=== PATIENT | female | born 1970 | race Caucasian/White ===

== ENCOUNTER 2017-04-20 01:15 | Emergency (ER) | payer OTHER ==
[~2017-04-20] VITALS: Ht 162.6 cm; Wt 54.4 kg
--- NOTE | 2017-04-20 01:21 | Emergency Room Report ---
History of Present Illness General Chief Complaint: Dyspnea/Respdistress Source: Patient Present Illness HPI Is a 47-year-old female with history of COPD. She still smokes. Also has history HIV and hepatitis. She presents with chief complaint of anxiety. Said that she can't breathe. Hard time getting air. No fever or chills. No nausea no vomiting. Out of her inhaler. Denies any fever chills denies any chest pain. Allergies: Coded Allergies: No Known Allergies (Unverified , 04/20/17) Patient History Past Medical History: see triage record, old chart reviewed, COPD, HIV Past Surgical History: other Pertinent Family History: none Social History: Reports: smoking, Denies: drug use Last Menstrual Period: last month Now: No Immunizations: other Reviewed Nursing Documentation: PMH: Agreed, PSxH: Agreed Nursing Documentation-PMH Hx COPD: Yes Hx Gastrointestinal Problems: Yes - HEP C History Of Psychiatric Problem: Yes - ANXIETY Review of Systems Eye: Denies: blurred vision, eye pain ENT: Denies: ear pain, nose congestion, throat swelling Respiratory: Reports: cough, shortness of breath Cardiovascular: Denies: chest pain, palpitations Gastrointestinal: Denies: abdominal pain, diarrhea, nausea, vomiting Musculoskeletal: Denies: back pain, joint pain Skin: Denies: rash Neurological: Denies: headache, numbness Endocrine: Denies: increased thirst, increased urine Hematologic/Lymphatic: Denies: easy bruising All Other Systems: negative except mentioned in HPI Physical Exam Vital Signs Date Time Temp Pulse Resp B/P Pulse Ox O2 Delivery O2 Flow Rate FiO2 04/20/17 01:10 98.1 106 20 129/78 87 Room Air vitals with tachycardia and hypoxia Sp02 EP Interpretation: reviewed, abnormal General Appearance: well appearing, no apparent distress, alert Head: normocephalic, atraumatic Eyes: bilateral eye EOMI, bilateral eye PERRL ENT: hearing grossly normal, normal pharynx Neck: full range of motion, supple, no meningismus Respiratory: chest non-tender, decreased breath sounds, wheezing Cardiovascular #1: regular rate, rhythm, no murmur Gastrointestinal: normal bowel sounds, non tender, no mass, no organomegaly, no bruit, non-distended Musculoskeletal: back normal, gait/station normal, normal range of motion Psychiatric: mood/affect normal Skin: warm/dry Medical Decision Making Diagnostic Impression: Primary Impression: COPD with exacerbation Additional Impression: Anxiety ER Course Patient is as with COPD exacerbation. She is better now after breathing treatment. No wheezing. Oxygenation is 96% on room air. We'll discharge home in the morning. No suicidal thought homicidal thought. No drug abuse. She told me that she just left [facility] couple days ago. She was treated there for pneumonia. Chest X-Ray Diagnostic Results Chest X-Ray Diagnostic Results : Chest X-Ray Ordered: Yes # of Views/Limited/Complete: 1 View Indication: Shortness of Breath EP Interpretation: Yes Interpretation: no consolidation, no effusion, no pneumothorax, no acute cardiopulmonary disease Impression: No acute disease - COPD Interpreting ER Provider: Electronically signed by Joey Baptiste MD Last Vital Signs Date Time Temp Pulse Resp B/P Pulse Ox O2 Delivery O2 Flow Rate FiO2 04/20/17 01:10 98.1 106 20 129/78 87 Room Air Status: improved Disposition: HOME, SELF-CARE Condition: Stable Scripts Prednisone* (PREDNISONE*) 20 Mg Tablet 40 MG ORAL DAILY, #8 TAB Prov: JOEY BAPTISTE M.D. 04/20/17 Albuterol Sulfate* (ALBUTEROL SULFATE MDI*) 8.5 Gm Hfa.aer.ad 2 PUFF INH Q4H Y for cough/wheezing, #1 EA 0 Refills Prov: JOEY BAPTISTE M.D. 04/20/17 Patient Instructions: Chronic Obstructive Pulmonary Disease Exacerbation Additional Instructions: Stop smoking. Followup with your DrRochelle in 2-3 days. Return if symptom worsen. JOEY BAPTISTE M.D. Apr 20, 2017 01:21
[2017-04-20] MEDS ORDERED: Ipratropium 0.02% Inh Soln 2.5ml UD HHN ONE (01:30)
[2017-04-20] MEDS ORDERED: PredniSONE 20mg tab ORAL ONE (01:30)
[2017-04-20] MEDS ORDERED: Albuterol ud Inhalation HHN ONE (01:30)
[2017-04-20 02:00] VITALS: BP 141/72
[2017-04-20] MEDS ORDERED: ALBUTEROL SULF8.5 GM INH (02:37)
[2017-04-20] MEDS ORDERED: PREDNISONE20 MG ORAL (02:38)
[2017-04-20 03:30] VITALS: BP 133/72
--- NOTE | 2017-04-20 10:21 | Diagnostic Imaging Report ---
Indication: Dyspnea Comparison: None A single view chest radiograph was obtained. Findings: Cardiomediastinal appearance is within normal limits for age. Pulmonary vascularity is appropriate. The diaphragmatic contour is smooth and costophrenic angles are sharp. No pleural effusions are identified. The bones are unremarkable. Impression: No acute findings
== END 2017-04-20 03:30 | disposition home or self-care (01) ==
LOC: EDBD 01:15 → EMR 02:47
DX: J44.1 Chronic obstructive pulmonary disease with (acute) exacerbation (principal); F41.9 Anxiety disorder, unspecified; F17.200 Nicotine dependence, unspecified, uncomplicated; Z86.19 Personal history of other infectious and parasitic diseases; R00.0 Tachycardia, unspecified; R09.02 Hypoxemia
CPT/HCPCS: 71010; 80300; 94640; 94664; 99284

== ENCOUNTER 2017-04-27 01:27 | Emergency (ER) | payer OTHER ==
[~2017-04-27] VITALS: Ht 162.6 cm; Wt 54.4 kg
[~2017-04-27 01:27] MED LIST: ALBUTEROL SULF8.5 GM INH; PREDNISONE20 MG ORAL
[2017-04-27 01:55] VITALS: BP 120/70
[2017-04-27 02:11] VITALS: BP 120/70
--- NOTE | 2017-04-27 07:58 | Emergency Room Report ---
History of Present Illness General Chief Complaint: General Complaint Source: Patient Present Illness HPI Is a 46-year-old female brought in by EMS after increased anxiety. Patient was noted to be at least patient. Patient stated that she had she had not been able to find her boyfriend. The patient had been taking multiple medications for anxiety as well as pain. She denies any acute complaints. She denies suicidal thoughts. She is denies auditory or visual hallucinations. Allergies: Coded Allergies: No Known Allergies (Unverified , 04/20/17) Patient History Past Medical History: see triage record Now: No Reviewed Nursing Documentation: PMH: Agreed, PSxH: Agreed Nursing Documentation-PMH Hx COPD: Yes Hx Gastrointestinal Problems: Yes - HEP C History Of Psychiatric Problem: Yes - anxiety Review of Systems All Other Systems: negative except mentioned in HPI Physical Exam Vital Signs Date Time Temp Pulse Resp B/P Pulse Ox O2 Delivery O2 Flow Rate FiO2 04/27/17 01:43 97.5 68 16 120/70 98 Room Air Sp02 EP Interpretation: reviewed, normal General Appearance: normal inspection, well appearing, no apparent distress, alert, GCS 15 Head: normocephalic, atraumatic ENT: normal ENT inspection, hearing grossly normal, normal voice Neck: normal inspection, full range of motion, supple, no bony tend Respiratory: normal inspection, lungs clear, normal breath sounds, no respiratory distress, no retraction, no wheezing Cardiovascular #1: regular rate, rhythm, no edema Gastrointestinal: normal inspection, normal bowel sounds, non tender, soft, no guarding, no hernia Genitourinary: no CVA tenderness Musculoskeletal: normal inspection, back normal, normal range of motion Neurologic: normal inspection, alert, responsive, speech normal Psychiatric: normal inspection, judgement/insight normal, mood/affect normal Skin: normal inspection, normal color, no rash Medical Decision Making Diagnostic Impression: Primary Impression: Anxiety ER Course Patient presented for anxiety. Differential diagnoses include substance abuse , psychosis, bipolar disorder, depression among others. Patient's benign exam and does not appear to require any further imaging or laboratory testing at this time. The patient appears as some anxiety however she is on multiple medications for this. Patient denied any auditory or visual hallucinations she denied any suicidal thoughts. The patient does not appear to require psychiatric hospitalization or treatment at this time. The patient is advised to follow up with primary care doctor in 1-2 days. Patient is advised to return if any worsening condition or if any changes in status that are concerning. Last Vital Signs Date Time Temp Pulse Resp B/P Pulse Ox O2 Delivery O2 Flow Rate FiO2 04/27/17 02:11 78 16 120/70 98 Room Air 04/27/17 01:55 97.5 Status: improved Disposition: HOME, SELF-CARE Condition: Stable Referrals: [facility]ERR[facility] (PCP) Patient Instructions: Generalized Anxiety Disorder Elie Wright Apr 27, 2017 07:57
== END 2017-04-27 02:11 | disposition home or self-care (01) ==
LOC: EDBD 01:27 → EMR 01:40
DX: F41.9 Anxiety disorder, unspecified (principal); J44.9 Chronic obstructive pulmonary disease, unspecified; Z86.19 Personal history of other infectious and parasitic diseases
CPT/HCPCS: 99283